=== PATIENT | female | born 2000 ===

== ENCOUNTER 2019-02-05 11:16 | Outpatient (CLI) | payer BC | END 2019-02-05 11:17 | disposition home or self-care (01) | LOC: C.PAT 11:16 | DX: N84.0 Polyp of corpus uteri (principal) ==

== ENCOUNTER 2019-02-09 07:18 | Day surgery (SDC) | payer BC ==
[2019-02-04 10:42] VITALS: BMI 35.7
[2019-02-09] MEDS ORDERED: Phenylephrine 10 mg/ml Inj ONE (09:07)
[2019-02-09] MEDS ORDERED: HYDROmorphone 0.5 mg/0.5 ml ISec IVP PRN ×2 (09:15→10:17)
[2019-02-09] MEDS ORDERED: Midazolam 2 MG/2 ML VIAL ONE (09:42)
[2019-02-09] MEDS ORDERED: Propofol 10 mg/ml Inj (20 ML) ONE (09:42)
--- NOTE | 2019-02-09 10:10 | PCM.SURG1 ---
Surgeon's Initial Post Op Note - Surgeon's Notes Surgeon: Dr. Argueta Blood [facility] Specialist: None Type of Anesthesia: General LMA Pre-Operative Diagnosis: 18 yo with Endometrial Polyp, Irregular menstrual cycle , Menorrhagia, Failure of medical therapy Operative Findings: Av uterus with Multiple polyps Post-Operative Diagnosis: Same as above Operation Performed: Hysteroscopy Myosure D and C Specimen/Specimens Removed: Polyp, EMC, ECC Estimated Blood Loss: EBL {In ML}: 10 Blood Products Given: N/A Drains Used: No Drains Post-Op Condition: Good Date of Surgery/Procedure: 02/09/19 Time of Surgery/Procedure: 10:10
[2019-02-09 10:36] VITALS: O2SAT 100
[2019-02-09 11:13] VITALS: RESP 18
[2019-02-09 12:10] VITALS: BP 103/81; PULSE 72; TEMP 98.2
--- NOTE | 2019-02-09 12:40 | OP ---
PROCEDURE DATE: 02/09/2019 PREOPERATIVE DIAGNOSES: This is a 18-year-old female with history of menorrhagia, irregular menstrual period, endometrial polyp and failure of medical therapy. POSTOPERATIVE DIAGNOSES: This is a 18-year-old female with history of menorrhagia, irregular menstrual period, endometrial polyp and failure of medical therapy. PROCEDURES: Hysteroscopy, MyoSure, and D and C. SURGEON: Leonie Abrams MD TYPE OF ANESTHESIA: General LMA. ANESTHESIA ADMINISTERED BY: Reed Tariq MD FINDINGS: Anteverted uterus of approximately 8 weeks' gestation, noted to have multiple endometrial polyps. COMPLICATIONS: None. ESTIMATED BLOOD LOSS: 10 mL. INPUT AND OUTPUT: 100 mL. SPECIMEN: EMC, ECC, and polyp. DESCRIPTION OF PROCEDURE: The patient was informed of the risk factors, benefits, and alternatives of the procedure. Risk factors included infection, bleeding, damage to the surrounding organs and tissues, complication from anesthesia, perforation, and need of a hysterectomy as well as complication from anesthesia and possible . She was also well informed that endometrial polyps can reoccur. She was well aware. All questions were answered and informed consent was obtained. Once the informed consent was obtained, she was then taken to the operating room. She was prepped and draped in normal sterile fashion, placed in dorsal lithotomy position. A weighted speculum was placed into the vagina. The anterior lip of the cervix was grasped with a single-toothed tenaculum. The uterus was gently sounded to approximately 8 cm. The scope was then placed. A complete surveillance of the uterine cavity was performed that demonstrated multiple endometrial polyps. The REACH MyoSure device was utilized in order to remove and clear the uterus of these endometrial polyps. Excellent hemostasis. The polyps were submitted to pathology. Upon removal, the scope was then removed together with the REACH device and a fractional D and C was performed. Endocervical curetting and endometrial curetting was submitted to pathology. The scope was reintroduced making sure there was no areas of perforation. Upon completion, all instruments were removed from the vagina. Instruments and lap counts were correct x2. The patient was then taken to the recovery room in stable condition and instructed to follow up in the office in two weeks. Leonie Abrams MD [facility] # [phone]
== END 2019-02-09 12:10 | disposition home or self-care (01) ==
LOC: C.SDS 07:18
PROVIDERS: ATTEND Obstetrics & Gynecology
DX: N84.0 Polyp of corpus uteri (principal); N92.1 Excessive and frequent menstruation with irregular cycle
CPT/HCPCS: 58558; 88305; J1100; J2001; J2250; J2370; J2704; J2765; J3010